=== PATIENT | female | born 1990 | race Caucasian/White ===

== ENCOUNTER 2016-09-21 13:27 | Emergency (ER) | payer OTHER ==
[~2016-09-21] VITALS: Ht 172.7 cm; Wt 83.0 kg
--- NOTE | 2016-09-21 16:08 | ULTRASOUND REPORT ---
EXAMINATION: ULTRASOUND OF THE PELVIS CLINICAL INFORMATION: Right-sided lower quadrant abdominal pain. COMPARISON: None. TECHNIQUE: Transabdominal and transvaginal pelvic ultrasound. FINDINGS: The uterus is normal in size and appearance, measuring 7.3 x 3.8 x 4.7 cm longitudinally, anteroposteriorly and transversely. The endometrial stripe thickness measures 1.8 cm in thickness. The cervical length measures 3 cm. No focal myometrial mass is seen. The ovaries bilaterally are visualized and appear normal, with the right ovary measuring 3.2 x 2.1 x 2.0 cm, volume 7 mL and the left ovary measuring 2.6 x 1.2 x 1.8 cm., volume of 3.2 mL. The flow to both ovaries is well maintained. Moderate amount of free fluid is noted within the cul-de-sac. A transvaginal study was performed in addition to the transabdominal study which did not yield an adequate examination of the uterus and ovaries due to superimposed distended gas-filled loops of bowel. IMPRESSION: 1. The endometrial stripe appears thickened, measures 1.8 cm in thickness. Otherwise the uterus sonographically appears unremarkable. 2. The left ovary is unremarkable. 3. The right ovary shows nonspecific minimal enlargement, without any discrete mass. 4. Moderate amount of free fluid within the cul-de-sac.
[2016-09-21 16:32] LABS: ABSOLUTE BASOPHIL COUNT 0 /CUMM (0.0-0.2); ABSOLUTE EOSINOPHIL COUNT 0.1 /CUMM (0.0-0.7); ABSOLUTE LYMPH COUNT 2.3 /CUMM (1.2-3.4); ABSOLUTE MONOCYTE COUNT 0.6 /CUMM (0.10-0.60); BASOPHIL % 0.4 % (0.0-2.0); EOSINOPHIL % 0.7 % (0-5); GRANULOCYTE % 66.9 % (42.2-75.2); HEMATOCRIT 42.7 % (37-47); MEAN CORPUSCULAR HGB CONC 33.4 G/DL (33.0-37.0); MEAN CORPUSCULAR VOLUME 86.8 FL (81.0-99.0); MEAN PLATELET VOLUME 9.4 FL (7.4-10.4); PLATELET COUNT 243 /CUMM (130-400); RBC DISTRIBUTION WIDTH 13.8 % (11.5-14.5); RED BLOOD CELL CT 4.92 /CUMM (4.20-5.40)
[2016-09-21] MEDS ORDERED: MICROGESTIN FE1 EAC1 (16:45)
[2016-09-21] MEDS ORDERED: EPIPEN 2-P0.3 MG/0.3 IM (16:46)
[2016-09-21] MEDS ORDERED: PROAIR HFA8.5 GM INH (16:46)
--- NOTE | 2016-09-21 17:48 | CT SCAN REPORT ---
EXAMINATION: CT ABDOMEN AND PELVIS WITH CONTRAST CLINICAL INFORMATION: 26-year-old female with right lower quadrant abdominal pain. Suspected appendicitis. COMPARISON: Pelvic ultrasound done earlier today. TECHNIQUE: Multidetector volumetric imaging was performed of the abdomen and pelvis before and after the IV administration of 95 mL of Optiray 320 intravenous contrast. Sagittal and coronal reformatted images were obtained on the technologist's workstation. DLP: 481.66 mGy-cm FINDINGS: LUNG BASES: The visualized lung bases are unremarkable. LIVER, GALLBLADDER, AND BILIARY TREE: The liver is normal in size, shape, and attenuation. No focal hepatic lesion or biliary ductal dilatation is present. The gallbladder is surgically absent. There is no intrahepatic or extrahepatic biliary ductal dilatation present. PANCREAS: Unremarkable. SPLEEN: Unremarkable. ADRENAL GLANDS: Unremarkable. KIDNEYS AND URETERS: The kidneys are normal in size, shape, and attenuation. No hydronephrosis, hydroureter, or calculi seen. No perinephric stranding. BLADDER: Unremarkable. GASTROINTESTINAL TRACT: The small, large bowel loops are decompressed. The appendix is visualized at the level of the pelvic inlet on the right,, the mid to distal part of the appendix measures between 0.6 to 0.7 cm at its maximum dimension. There is subtle mucosal enhancement identified with evidence of a few tiny appendicolith. There is no periappendiceal fluid collection seen. Even though by measurement, the appendix borderline dilated, however, given the presence of mucosal enhancement and subtle periappendiceal inflammation, and in the appropriate clinical setup, the finding would be consistent with subtle early changes of noncomplicated acute appendicitis (see the kramer images). ABDOMINAL WALL: No significant hernia is appreciated. LYMPH NODES: Normal. VASCULAR: Unremarkable. PELVIC VISCERA: The uterus is anteverted. The endometrium appears prominent. Bilateral ovaries are visualized with likely collapsed hemorrhagic follicle on the right. Moderate amount of free fluid is noted within the dependent part of the pelvis. OSSEOUS STRUCTURES: No suspicious lytic or sclerotic abnormalities present. IMPRESSION: 1. Surgically absent gallbladder with decompressed biliary tree. 2. The appendix measures between 0.6 to 0.7 cm at its maximum dimension, borderline dilated, shows mucosal enhancement, few tiny appendicolith and subtle periappendiceal inflammatory changes. The findings in the appropriate clinical setting would be consistent with subtle early changes of noncomplicated acute appendicitis. 3. Evidence of collapsing hemorrhagic follicle within the right ovary and normal-appearing left ovary and prominent endometrium within the uterus. 4. Moderate amount of free fluid within the cul-de-sac. This critical result was discussed with MATTHEW Forde at 5:38 PM on 09/21/2016 and it was ascertained that the content and urgency of the report was understood at the time of direct communication.
--- NOTE | 2016-09-21 17:57 | ED GI/GU/ABDOMINAL COMPLAINT ---
History of Present Illness General Chief Complaint: Abdominal Pain/Flank Pain Stated Complaint: PT IS HAVING ABDOMINAL PAIN,VOMITING Source: patient Exam Limitations: no limitations Vital Signs & Intake/Output Vital Signs & Intake/Output Vital Signs Date Time Temp Pulse Resp B/P Pulse O2 O2 Flow FiO2 Ox Delivery Rate 09/21 1924 97.4 74 18 118/76 98 Room Air 09/21 1556 97.9 69 18 124/77 99 Room Air 09/21 1438 98 09/21 1332 97.9 97 18 128/84 97 Room Air Allergies Coded Allergies: venom-honey bee (Severe, ANAPHYLAXIS 09/21/16) walnut (Severe, ANAPHYLAXIS 09/21/16) triamcinolone (RASH HEAD TO TOE, HIVES 09/21/16) Reconcile Medications Albuterol Sulfate (Proair Hfa) 90 MCG HFA.AER.AD 2 PUF INH AD PRN ASTHMA ( Reported) Epinephrine (Epipen 2-Twin) 0.3 MG/0.3 ML AUTO.INJCT 0.3 MG IM AD PRN ALLERGIC REACTION (Reported) Norethindrone-E.estradiol-Iron (Microgestin Fe 1-20 Tablet) (Unknown Strength) TABLET (Unknown Dose) UNKNOWN (Reported) Oxycodone HCl/Acetaminophen (Percocet 5-325 MG Tablet) 5 MG-325 MG TABLET 1-2 TAB PO 4 TIMES/DAY PRN PAIN Triage Note: PT ED C/O RLQ ABD PAIN FOR APPROX 1 WEEK. +NAUSEA, DENIES VOMITING, ALSO REPORTING R FLANK PAIN, DENIES URINARY S/S. REPORTING SHE SAW PCP THURSDAY FOR SAME AND HAD NEGATIVE BLOODWORK AND URINE. Triage Nurses Notes Reviewed? yes ? n Is pt currently ? No HPI: 26-year-old female with right lower quadrant abdominal pain that has been intermittent for the last 1 week and getting worse. Her primary care doctor who did a urine test test and lab tests that were unremarkable. She's been taking Aleve with minimal relief. Since this morning the pain is getting worse, it has always been in the right lower quadrant right lower pelvic region and gaining coming more severe and intense in that area. 7 out of 10 pain that is sharp and fluctuating. No nausea no vomiting, she has a good appetite. No change in bowel habits. She stopped her usual control one month ago. She denies any vaginal discharge or bleeding. No fever or flulike illness. She has a history of cholecystectomy (DARIUSZ NGUYEN) Past History Travel History Traveled to [place] past 21 day No Medical History Any Pertinent Medical History? none Neurological: NONE EENT: NONE Cardiovascular: NONE Respiratory: NONE Gastrointestinal: NONE Hepatic: NONE Renal: NONE Musculoskeletal: NONE Psychiatric: NONE Endocrine: NONE Blood Disorders: NONE Cancer(s): NONE MARKETING PROJECT SPECIALIST/Reproductive: NONE Surgical History Surgical History: cholecystectomy Psychosocial History What is your primary language German Tobacco Use: Never used ETOH Use: occasional use Illicit Drug Use: denies illicit drug use Family History Hx Contributory? No (DARIUSZ NGUYEN) Review of Systems Review of Systems Constitutional: Reports: see HPI. EENTM: Reports: no symptoms. Respiratory: Reports: no symptoms. Cardiovascular: Reports: no symptoms. GI: Reports: see HPI. Genitourinary: Reports: no symptoms. Musculoskeletal: Reports: no symptoms. Skin: Reports: no symptoms. Neurological/Psychological: Reports: no symptoms. Hematologic/Endocrine: Reports: no symptoms. Immunologic/Allergic: Reports: no symptoms. All Other Systems: Reviewed and Negative (DARIUSZ NGUYEN) Physical Exam Physical Exam General Appearance: well developed/nourished Respiratory: normal breath sounds, chest non-tender, no respiratory distress Cardiovascular: regular rate/rhythm Gastrointestinal: normal bowel sounds, soft, TENDERNESS IN THE RIGHT LOWER PELVIC REGION AND RIGHT LOWER QUADRANT REGION. pAIN IS MORE SEVERE LOWER IN THE PELVIS THAN OVER mCbURNEY'S POINT Comments: Well-developed well-nourished no apparent distress. HEENT: Atraumatic, extraocular motion intact Neck: Supple, no lymphadenopathy Back: Nontender Respiratory: No respiratory distress Extremities: No edema, full range of motion Neuro: Alert and oriented x3 Psych: Mood affect normal, normal memory normal judgment. Skin: Warm and dry, no rash on exposed skin Core Measures ACS in differential dx? No Severe Sepsis Present: No Septic Shock Present: No (DARIUSZ NGUYEN) Progress Differential Diagnosis: AAA, AMI, appendicitis, biliary colic, bowel obstruction , colon cancer, cholecystitis, diverticulitis, ectopic , endometritis, esophageal varices, gastritis, hepatitis, hernia, hemorrhoids, ischemic bowel, inflamm bowel dis, intrauterine , kidney stone, Erinn-Aster tear, ovarian cyst, ovarian torsion, pancreatitis, PID/cervicitis, peptic ulcer, PUD/ GERD, perforated viscous, SBO, threatened AB, UTI/pyelo Plan of Care: Orders Procedure Date/time Status HUMAN BETA HCG SCREEN 09/21 1617 Complete COMPREHENSIVE METABOLIC PANEL 09/21 1617 Complete CBC WITHOUT DIFFERENTIAL 09/21 1617 Complete URINE 09/21 144 Complete URINALYSIS 09/21 144 Complete Laboratory Tests 09/21/161618: Anion Gap 9, Estimated GFR > 60, BUN/Creatinine Ratio 17.1, Glucose 76, Calcium 9.6, Total Bilirubin 0.7, AST 29, ALT 33, Alkaline Phosphatase 48, Total Protein 6.6, Albumin 4.0, Globulin 2.6, Albumin/Globulin Ratio 1.5, Total Beta HCG NEGATIVE, CBC w Diff NO MAN DIFF REQ, RBC 4.92, MCV 86.8, MCH 29.0, RDW 13.8, MPV 9.4, Gran % 66.9, Lymphocytes % 25.5, Monocytes % 6.5, Eosinophils % 0.7, Basophils % 0.4, Absolute Granulocytes 6.0, Absolute Lymphocytes 2.3, Absolute Monocytes 0.6, Absolute Eosinophils 0.1, Absolute Basophils 0, PUBS MCHC 33.4 09/21/161617: Urine Color YEL, Urine Clarity CLEAR, Urine pH 6.0, Ur Specific [place] 1.025, Urine Protein NEG, Urine Ketones NEG, Urine Nitrite NEG, Urine Bilirubin NEG, Urine Urobilinogen 0.2, Ur Leukocyte Esterase NEG, Ur Microscopic EXAM NOT REQUIRED, Urine Hemoglobin NEG, Urine Glucose NEG, Urine Test NEGATIVE Diagnostic Imaging: Viewed by Me: CT Scan, Ultrasound. Discussed w/RAD: CT Scan, Ultrasound. Radiology Impression: PATIENT: RAJNI MELCHOR PRESENT AGE: 26 PATIENT ACCOUNT NO: [id number] : 88 LOCATION: [facility] ORDERING PHYSICIAN: DARIUSZ CASTRO SERVICE DATE: 09/21/16 EXAM TYPE: US - US -TRANSVAGINAL EXAMINATION: ULTRASOUND OF THE PELVIS CLINICAL INFORMATION: Right- sided lower quadrant abdominal pain. COMPARISON: None. TECHNIQUE: Transabdominal and transvaginal pelvic ultrasound. FINDINGS: The uterus is normal in size and appearance, measuring 7.3 x 3.8 x 4.7 cm longitudinally, anteroposteriorly and transversely. The endometrial stripe thickness measures 1.8 cm in thickness. The cervical length measures 3 cm. No focal myometrial mass is seen. The ovaries bilaterally are visualized and appear normal, with the right ovary measuring 3.2 x 2.1 x 2.0 cm, volume 7 mL and the left ovary measuring 2.6 x 1.2 x 1.8 cm., volume of 3.2 mL. The flow to both ovaries is well maintained. Moderate amount of free fluid is noted within the cul-de-sac. A transvaginal study was performed in addition to the transabdominal study which did not yield an adequate examination of the uterus and ovaries due to superimposed distended gas-filled loops of bowel. IMPRESSION: 1. The endometrial stripe appears thickened, measures 1.8 cm in thickness. Otherwise the uterus sonographically appears unremarkable. 2. The left ovary is unremarkable. 3. The right ovary shows nonspecific minimal enlargement, without any discrete mass. 4. Moderate amount of free fluid within the cul-de-sac. DICTATED BY: JOSE QUEEN MD DATE/TIME DICTATED:09/21/161527 OPERATOR/ASSISTANT FOREMAN:YURI DATE/TIME TRANSCRIBED:1527, = PATIENT: RAJNI MELCHOR PRESENT AGE: 26 PATIENT ACCOUNT NO: [id number] : 88 LOCATION: [facility] ORDERING PHYSICIAN: DARIUSZ CASTRO SERVICE DATE: 09/21/16 EXAM TYPE: CAT - CT ABD & PELVIS W IV CONTRAST EXAMINATION: CT ABDOMEN AND PELVIS WITH CONTRAST CLINICAL INFORMATION: 26-year-old female with right lower quadrant abdominal pain. Suspected appendicitis. COMPARISON: Pelvic ultrasound done earlier today. TECHNIQUE: Multidetector volumetric imaging was performed of the abdomen and pelvis before and after the IV administration of 95 mL of Optiray 320 intravenous contrast. Sagittal and coronal reformatted images were obtained on the technologist's workstation. DLP: 481.66 mGy-cm FINDINGS: LUNG BASES: The visualized lung bases are unremarkable. LIVER, GALLBLADDER, AND BILIARY TREE: The liver is normal in size, shape, and attenuation. No focal hepatic lesion or biliary ductal dilatation is present. The gallbladder is surgically absent. There is no intrahepatic or extrahepatic biliary ductal dilatation present. PANCREAS: Unremarkable. SPLEEN: Unremarkable. ADRENAL GLANDS: Unremarkable. KIDNEYS AND URETERS: The kidneys are normal in size, shape, and attenuation. No hydronephrosis, hydroureter, or calculi seen. No perinephric stranding. BLADDER: Unremarkable. GASTROINTESTINAL TRACT: The small, large bowel loops are decompressed. The appendix is visualized at the level of the pelvic inlet on the right,, the mid to distal part of the appendix measures between 0.6 to 0.7 cm at its maximum dimension. There is subtle mucosal enhancement identified with evidence of a few tiny appendicolith. There is no periappendiceal fluid collection seen. Even though by measurement, the appendix borderline dilated, however, given the presence of mucosal enhancement and subtle periappendiceal inflammation, and in the appropriate clinical setup, the finding would be consistent with subtle early changes of noncomplicated acute appendicitis (see the kramer images). ABDOMINAL WALL: No significant hernia is appreciated. LYMPH NODES: Normal. VASCULAR: Unremarkable. PELVIC VISCERA: The uterus is anteverted. The endometrium appears prominent. Bilateral ovaries are visualized with likely collapsed hemorrhagic follicle on the right. Moderate amount of free fluid is noted within the dependent part of the pelvis. OSSEOUS STRUCTURES: No suspicious lytic or sclerotic abnormalities present. IMPRESSION: 1. Surgically absent gallbladder with decompressed biliary tree. 2. The appendix measures between 0.6 to 0.7 cm at its maximum dimension, borderline dilated, shows mucosal enhancement, few tiny appendicolith and subtle periappendiceal inflammatory changes. The findings in the appropriate clinical setting would be consistent with subtle early changes of noncomplicated acute appendicitis. 3. Evidence of collapsing hemorrhagic follicle within the right ovary and normal-appearing left ovary and prominent endometrium within the uterus. 4. Moderate amount of free fluid within the cul-de-sac. This critical result was discussed with MATTHEW Forde at 5:38 PM on 09/21/2016 and it was ascertained that the content and urgency of the report was understood at the time of direct communication. DICTATED BY: JOSE QUEEN MD DATE/TIME DICTATED:09/21/161717 OPERATOR/ASSISTANT FOREMAN:YURI DATE/TIME TRANSCRIBED:09/21/16 Initial ED EKG: none Comments: Treated with IV Toradol 30 mg. We will obtain ultrasound and urinalysis, fever ovarian cyst over appendicitis based on patient's history and exam findings. Ultrasound is not entirely conclusive as to the cause of patient's pain, she has an enlarged ovary on the right side and free fluid in the pelvis. She is feeling better after the Toradol, we'll pursue CT scan. Patient reevaluated, pain is starting to return, 7 out of 10 at this time, given 2 mg of morphine IV, discussed findings of CT scan with patient, hemorrhagic ovarian follicle and possible very early acute appendicitis changes, call placed to surgery at 09/21/2016 5:56:51 PM Patient seen by Josef Cisneros MD in the emergency department. He feels as though it is unlikely the patient has appendicitis, likely symptoms are secondary to ovarian cystic rupture. Stable for discharge home with follow-up with [facility], returning here with worsening signs of infection fever pain nausea vomiting which were discussed with patient. She understands and agrees with plan. She is given Percocet as outpatient for her ovarian cyst pain (DARIUSZ NGUYEN) Departure Departure Disposition: HOME OR SELF CARE Condition: Stable Clinical Impression Primary Impression: Hemorrhagic ovarian cyst Referrals: MCKENZIE SUTTON,MENG SANCHEZ (PCP/Family) Additional Instructions: Follow-up with your [facility] doctor in the next few weeks or sooner if you're having continued pain . Return to the ER with worsening abdominal pain with fever, nausea, vomiting or flulike illness. We will need to reevaluate you for appendicitis Departure Forms: Customer Survey General Discharge Information Prescriptions: Current Visit Scripts Oxycodone HCl/Acetaminophen (Percocet 5-325 MG Tablet) 1-2 TAB PO 4 TIMES/DAY PRN PAIN #20 TAB (DARIUSZ NGUYEN) PA/NURSING PROGRAM COORDINATOR Co-Sign Statement Statement: ED Attending supervision documentation- [] I saw and evaluated the patient. I have also reviewed all the pertinent lab results and diagnostic results. I agree with the findings and the plan of care as documented in the PA's/NURSING PROGRAM COORDINATOR's documentation. X I have reviewed the ED Record and agree with the PA's/NURSING PROGRAM COORDINATOR's documentation. [] Additions or exceptions (if any) to the PAs/NURSING PROGRAM COORDINATOR's note and plan are summarized below: [] (GILBERT SUTTON,ZAN)
[2016-09-21] MEDS ORDERED: PERCOCET 5-3251 EACH PO (19:16)
[2016-09-21 19:24] VITALS: BP 118/76
== END 2016-09-21 19:31 ==
LOC: ERH 13:27
PROVIDERS: Physician Assistant Surgical
DX: N83.201 Unspecified ovarian cyst, right side (principal)
CPT/HCPCS: 74177; 81003; 81025; 96374; 96375; J1885